=== PATIENT | female | born 1985 ===

== ENCOUNTER 2024-06-29 10:54 | Outpatient (AMB) | payer OTHER, SELFPAY ==
[2024-06-29 11:31] VITALS: BP 143/101; PULSE 88; O2SAT 99
--- NOTE | 2024-06-29 11:31 | MHC.OFFVIS ---
Vital Signs 06/29/24 11:31 Weight 163 lb BP 143/101 H Blood Pressure Location Rt brachial Position Sitting Pulse 88 Pulse Source Pulse Oximeter Pulse Oximetry (%) 99 Oxygen Delivery Method Room Air Intake Visit Reasons: Chronic Pain Allergies bee venom protein (honey bee) Allergy (Severe, Verified 06/29/24 11:37) Anaphylaxis ketorolac [From Toradol] Allergy (Severe, Verified 06/29/24 11:37) Anaphylaxis morphine Allergy (Severe, Verified 06/29/24 11:37) Anaphylaxis naproxen Allergy (Severe, Verified 06/29/24 11:37) Anaphylaxis NSAIDS (Non-Steroidal Anti-Inflamma Allergy (Severe, Verified 06/29/24 11:37) Anaphylaxis pregabalin Allergy (Severe, Verified 06/29/24 11:37) Anaphylaxis cefadroxil Allergy (Intermediate, Verified 06/29/24 11:37) Hives hydromorphone [From Dilaudid] Allergy (Intermediate, Verified 06/29/24 11:37) Hives Medication List - Last Reconciled 06/29/24 by Makenzie Bustos albuterol sulfate 2.5 mg inhalation Q6H albuterol sulfate 90 mcg/actuation 2 inhalations inhalation Q6H PRN alprazolam (Xanax) 0.5 mg PO BID capecitabine 1,000 mg PO BID fluticasone propion-salmeterol 100-50 mcg/dose (Advair Diskus) 1 inh inhalation BID lisinopril 5 mg PO DAILY multivitamin 1 tab PO DAILY naratriptan 2.5 mg PO ONCE PRN oxycodone-acetaminophen 5-325 mg 1 tab PO Q6H PRN HPI Comments Details: Ginger is a very pleasant 38-year-old female who presents to the office today for evaluation management of her chronic left breast pain Patient has been suffering with this pain for approximately 4 years. Diagnosed with breast cancer at the age of 33. Underwent mastectomy followed by reconstruction with implant and subsequent removal of the implant. Reports total of 10 surgeries to that area. Pain has persisted. She is unable to take nonsteroidal anti-inflammatory medications due to anaphylaxis. Has tried topical patches, gabapentin, Lyrica physical therapy all without improvement. Currently enrolled in chronic opioid program but after years of being on the medication is no longer controlling her pain Pain starts just under the axilla along the ribcage across to the sternum and from just under the clavicle to below the left breast. Areas significantly tender to even light touch sensation. Reports pain today is 8/10, constant. Does endorse temperature changes of the area, sometimes will feel hot sometimes it will feel cold. Also states some skin discoloration. Has followed up with the breast surgeon but was told there was nothing they can do for her Has recently been evaluated in the emergency room several times but they also were not able to provide her any assistance She was then referred to pain management by her PCP In terms of muscle damage condition is described as sharp, shooting, stabbing, throbbing, tingling, pins and needles Pain is negatively impacting patient's enjoyment of life, general activity, mood, normal work, recreational activities, relationships with people, sleep and walking. Patient reports the pain effects every part of my life? She lost her job because of the pain. Denies current use of anticoagulants Denies current use of nicotine, tobacco or illicit substances. Endorses social ETOH use [facility] Surgical History (Updated 06/29/24 @ 11:45 by Makenzie Bustos) History of partial hysterectomy Previous section History of tonsillectomy and adenoidectomy Hx of bilateral mastectomy Review of Systems Const All systems reviewed & are unremarkable except as noted in HPI and below Physical Exam Vital Signs: Last Vital Signs Pulse 88 06/29/24 11:31 BP 143/101 H 06/29/24 11:31 Pulse Ox 99 06/29/24 11:31 Oxygen Delivery Method Room Air 06/29/24 11:31 General: awake, alert, oriented. Answers questions appropriately. Fully engaged in examination. Skin: warm, dry, intact HEENT: Normocephalic. Hearing intact. Cardiac: External chest normal in appearance. Respiratory: No cough, audible wheezing or stridor. Abdomen: without gross distension. MS: No obvious swelling or deformities. Neurological: Oriented to person, place, time and situation. Thought process intact. No gait abnormalities appreciated. Psychiatric: Appropriate mood and affect. Good judgment and insight. Left breast from axilla to sternum, clavicle to just under left breast significantly sensitive to light touch sensation. Notable for allodynia, temperature changes, skin color changes. No signs of local or systemic infection. Assessment & Plan Assessment & Plan (1) Post-mastectomy pain syndrome: Code(s): G89.28 - Other chronic postprocedural pain Category: Medical (2) Chronic pain syndrome: Code(s): G89.4 - Chronic pain syndrome Plan Ginger is a very pleasant 38-year-old female who presented to the office today for evaluation and management of her chronic left breast pain History, physical exam and provocative testing consistent with postmastectomy pain syndrome/CRPS She has exhausted conservative therapy including PT, home exercise program, prescription medications, [id number] medications, topical medications all without improvement of her symptoms. Discussed options for treatment including diagnostic interventional testing, epidural steroid injections, peripheral nerve stimulation with Sprint, RFA and more permanent neuromodulation. Informational pamphlet for [employer] spinal cord stimulation provided. Will schedule for ultrasound-guided left intercostal nerve blocks with local anesthetic. All questions and concerns have been answered and patient agrees with the plan. Follow up after injections and sooner if needed. Coding Level of Care Code New Pt Level 4 (28780) Complex EM visit Add On G2211 Diagnoses Post-mastectomy pain syndrome G89.28 Chronic pain syndrome G89.4
== END 2024-06-29 12:07 | disposition home or self-care (01) ==
PROVIDERS: PCP Student in an Organized Health Care Education/Training Program; Visit Provider Registered Nurse Emergency
DX: G89.28 Other chronic postprocedural pain (principal)
CPT/HCPCS: 99204; G2211

== ENCOUNTER → 2024-06-29 10:54 | Outpatient (BNVA) | payer OTHER, SELFPAY | PROVIDERS: PCP Student in an Organized Health Care Education/Training Program; Visit Provider Registered Nurse Emergency | DX: G89.4 Chronic pain syndrome (principal) | CPT/HCPCS: 99202 ==

== ENCOUNTER 2024-07-21 08:46 | Outpatient (AMB) | payer OTHER, SELFPAY ==
--- NOTE | 2024-07-21 08:47 | A.OFFVIS_ITS ---
Vital Signs 07/21/24 08:49 Height 5 ft 4 in Weight 163 lb BMI 28.0 BP 138/89 Blood Pressure Location Rt brachial Position Sitting Respiration 16 Pulse 107 H Pulse Source Pulse Oximeter Pulse Oximetry (%) 99 Oxygen Delivery Method Room Air Intake Visit Reasons: Left intercostal NB Allergies bee venom protein (honey bee) Allergy (Severe, Verified 07/21/24 08:52) Anaphylaxis ketorolac [From Toradol] Allergy (Severe, Verified 07/21/24 08:52) Anaphylaxis morphine Allergy (Severe, Verified 07/21/24 08:52) Anaphylaxis naproxen Allergy (Severe, Verified 07/21/24 08:52) Anaphylaxis NSAIDS (Non-Steroidal Anti-Inflamma Allergy (Severe, Verified 07/21/24 08:52) Anaphylaxis pregabalin Allergy (Severe, Verified 07/21/24 08:52) Anaphylaxis cefadroxil Allergy (Intermediate, Verified 07/21/24 08:52) Hives hydromorphone [From Dilaudid] Allergy (Intermediate, Verified 07/21/24 08:52) Hives Medication List - Last Reconciled 07/21/24 by Yuly Bower LPN albuterol sulfate 2.5 mg inhalation Q6H albuterol sulfate 90 mcg/actuation 2 inhalations inhalation Q6H PRN alprazolam (Xanax) 0.5 mg PO BID amlodipine 5 mg PO DAILY fluticasone propion-salmeterol 100-50 mcg/dose (Advair Diskus) 1 inh inhalation BID multivitamin 1 tab PO DAILY naratriptan 2.5 mg PO ONCE PRN oxycodone-acetaminophen 5-325 mg 1 tab PO Q6H PRN HPI HPI Left intercostal NB: Details: 38-year-old female who presents today to the office for a left intercostal nerve block. Denies any recent cough, cold, infection, fever or other significant changes in medical history since last office visit.? [facility] Surgical History (Updated 06/29/24 @ 11:45 by Makenzie Bustos) History of partial hysterectomy Previous section History of tonsillectomy and adenoidectomy Hx of bilateral mastectomy Review of Systems Const All systems reviewed & are unremarkable except as noted in HPI and below Physical Exam Vital Signs: Last Vital Signs Pulse 107 H 07/21/24 08:49 Resp 16 07/21/24 08:49 BP 138/89 07/21/24 08:49 Pulse Ox 99 07/21/24 08:49 Oxygen Delivery Method Room Air 07/21/24 08:49 BMI result Body Mass Index 28.0 General: Appears afebrile. Alert and oriented. Mood and affect appropriate. Follows and participates in conversation appropriately. Respiratory effort is unlabored. Able to transition from sit to stand unassisted. Ambulates with bilaterally normal heel strike and toe off. Office Procedures Nerve Block Details: Left T7-8-9 intercostal nerve block, US guided After obtaining written consent, pre-procedure time-out was completed. The patie nt was placed in a left lateral position. The relevant levels of the intercostal nerves were physically palpated corresponding to the patient's pain and marked. Using ultrasound, the appropriate landmarks including the rib, intercostal muscles and pleura were identified. The skin was anesthetized with 1% lidocaine. A 21-gauge 80 mm echostim needle was advanced under sonographic guidance in proximity to each of the intercostal nerves. Aspiration was negative for heme and air. 2 cc of ropivacaine 0.5% mixed with 10 mg Kenalog was injected around each of the targeted nerves. The needle was removed, skin cleansed and a sterile bandage was applied. The patient tolerated the procedure well and no complications were encountered. Following the procedure, the patient's vital signs and respiration were stable. The patient was discharged home in good condition with post-procedural instructions. Time Out: Immediately prior to the procedure, the following was verbally confirmed that there is a signed consent form and that the correct patient, planned procedure, site and side are consistent with documentation and that necessary equipment and/or blood products are available prior to the start of the case. Complications: none EBL: <1 cc An ultrasound image of the injection was taken and stored in the permanent record. Procedure code (CPT) selection complete Results Reviewed Results Reviewed: No imaging is available for review. Assessment & Plan Assessment & Plan (1) Post-mastectomy pain syndrome: Code(s): G89.28 - Other chronic postprocedural pain Category: Medical Plan Patient is status post left T7-8-9 intercostal nerve block, US guided. Patient tolerated procedure well and was discharged home in stable condition with discharge instructions.? All questions were answered. I also discussed spinal cord stimulator as a possible treatment option. We will follow-up in one month in clinic to assess response to therapy. A follow-up appointment was made during today's visit. Scribed for Dr. Vance by Raymundo Vance, electromedical service engineer, on 07/21/2024. I, Dr. Vance, have personally reviewed and agree with the information entered by the scribe. Coding Level of Care Code Procedure Only Diagnoses Post-mastectomy pain syndrome G89.28
[2024-07-21 08:49] VITALS: BP 138/89; PULSE 107; RESP 16; O2SAT 99; BMI 28.0
== END 2024-07-21 09:18 | disposition home or self-care (01) ==
PROVIDERS: PCP Student in an Organized Health Care Education/Training Program; Visit Provider Internal Medicine
DX: G89.28 Other chronic postprocedural pain (principal)
CPT/HCPCS: 64420; 76942

== ENCOUNTER → 2024-07-21 08:46 | Outpatient (BNVA) | payer OTHER, SELFPAY | PROVIDERS: PCP Student in an Organized Health Care Education/Training Program; Visit Provider Internal Medicine | DX: G89.28 Other chronic postprocedural pain (principal) | CPT/HCPCS: 64420; J2003; J2795; J3301 ==

== ENCOUNTER 2024-08-18 09:48 | Outpatient (AMB) | payer OTHER, SELFPAY ==
--- NOTE | 2024-08-18 09:50 | MHC.OFFVIS ---
Vital Signs 08/18/24 09:52 Height 5 ft 4 in Weight 164 lb BMI 28.1 BP 136/94 H Blood Pressure Location Rt brachial Position Sitting Respiration 15 Pulse 96 Pulse Source Pulse Oximeter Pulse Oximetry (%) 99 Oxygen Delivery Method Room Air Intake Visit Reasons: 1 MONTH FOLLOW UP Allergies bee venom protein (honey bee) Allergy (Severe, Verified 08/18/24 09:53) Anaphylaxis ketorolac [From Toradol] Allergy (Severe, Verified 08/18/24 09:53) Anaphylaxis morphine Allergy (Severe, Verified 08/18/24 09:53) Anaphylaxis naproxen Allergy (Severe, Verified 08/18/24 09:53) Anaphylaxis NSAIDS (Non-Steroidal Anti-Inflamma Allergy (Severe, Verified 08/18/24 09:53) Anaphylaxis pregabalin Allergy (Severe, Verified 08/18/24 09:53) Anaphylaxis cefadroxil Allergy (Intermediate, Verified 08/18/24 09:53) Hives hydromorphone [From Dilaudid] Allergy (Intermediate, Verified 08/18/24 09:53) Hives Medication List - Last Reconciled 08/18/24 by Yuly Bower LPN albuterol sulfate 2.5 mg inhalation Q6H albuterol sulfate 90 mcg/actuation 2 inhalations inhalation Q6H PRN alprazolam (Xanax) 0.5 mg PO BID amlodipine 5 mg PO DAILY fluticasone propion-salmeterol 100-50 mcg/dose (Advair Diskus) 1 inh inhalation BID multivitamin 1 tab PO DAILY naratriptan 2.5 mg PO ONCE PRN oxycodone-acetaminophen 5-325 mg 1 tab PO Q6H PRN HPI HPI 1 MONTH FOLLOW UP: Details: 38-year-old female who presents today to the office for a follow up. Her pain was significantly improved after the last injection. She states that she was able to raise her arm over her head post injections. Her pain started returning after three weeks. She states that her pain is worse compared to her baseline prior to the injection. She discussed with her family about proceeding with an implantable device for longer pain relief. She is amenable to receive a nerve block today. Denies any recent cough, cold, infection, fever or other significant changes in medical history since last office visit.? Past procedures 07/21/24: Left T7-8-9 intercostal nerve block, US guided: 50-60% relief for about three weeks. [facility] Surgical History (Updated 06/29/24 @ 11:45 by Makenzie Bustos) History of partial hysterectomy Previous section History of tonsillectomy and adenoidectomy Hx of bilateral mastectomy Review of Systems Const All systems reviewed & are unremarkable except as noted in HPI and below Physical Exam Vital Signs: Last Vital Signs Pulse 96 08/18/24 09:52 Resp 15 08/18/24 09:52 BP 136/94 H 08/18/24 09:52 Pulse Ox 99 08/18/24 09:52 Oxygen Delivery Method Room Air 08/18/24 09:52 BMI result Body Mass Index 28.1 General: Appears afebrile. Alert and oriented. Mood and affect appropriate. Follows and participates in conversation appropriately. Respiratory effort is unlabored. Able to transition from sit to stand unassisted. Ambulates with bilaterally normal heel strike and toe off. Office Procedures Nerve Block Details: Left T7-8-9 intercostal nerve block, US guided After obtaining written consent, pre-procedure time-out was completed. The patient was placed in a left lateral position. The relevant levels of the intercostal nerves were physically palpated corresponding to the patient's pain and marked. Using ultrasound, the appropriate landmarks including the rib, intercostal muscles and pleura were identified. The skin was anesthetized with 1% lidocaine. A 21-gauge 80 mm echostim needle was advanced under sonographic guidance in proximity to each of the intercostal nerves. Aspiration was negative for heme and air. 2 cc of ropivacaine 0.5% mixed with 10 mg Kenalog was injected around each of the targeted nerves. The needle was removed, skin cleansed and a sterile bandage was applied. The patient tolerated the procedure well and no complications were encountered. Following the procedure, the patient's vital signs and respiration were stable. The patient was discharged home in good condition with post-procedural instructions. Time Out: Immediately prior to the procedure, the following was verbally confirmed that there is a signed consent form and that the correct patient, planned procedure, site and side are consistent with documentation and that necessary equipment and/or blood products are available prior to the start of the case. Complications: none Procedure code (CPT) selection complete Results Reviewed Results Reviewed: No imaging is available for review. Assessment & Plan Assessment & Plan (1) Post-mastectomy pain syndrome: Code(s): G89.28 - Other chronic postprocedural pain Category: Medical (2) CRPS (complex regional pain syndrome) type I: Code(s): G90.50 - Complex regional pain syndrome I, unspecified Category: Medical Plan Patient is status post repeat left T7-8-9 intercostal nerve block, US guided. Patient tolerated procedure well and was discharged home in stable condition with discharge instructions.?All questions were answered. Will place a referral for psychology clearance. Once we have received psychology clearance, we will plan for trial of spinal cord stimulator. The patient will receive a call from [facility] for the psychology assessment. Once we get the psychology clearance, we will file for insurance approval and keep her updated. Scribed for Dr. Vance by Raymundo Vance, medical records secretary, on 08/18/2024. I, Dr. Vance, have personally reviewed and agree with the information entered by the scribe. Coding Level of Care Code Est Pt Level 4 (13081) Diagnoses Post-mastectomy pain syndrome G89.28 CRPS (complex regional pain syndrome) type I G90.50
[2024-08-18 09:52] VITALS: BP 136/94; PULSE 96; RESP 15; O2SAT 99; BMI 28.1
== END 2024-08-18 10:39 | disposition home or self-care (01) ==
PROVIDERS: PCP Student in an Organized Health Care Education/Training Program; Visit Provider Internal Medicine
DX: G90.50 Complex regional pain syndrome I, unspecified (principal)
CPT/HCPCS: 99214

== ENCOUNTER → 2024-08-18 09:48 | Outpatient (BNVA) | payer OTHER, SELFPAY | PROVIDERS: PCP Student in an Organized Health Care Education/Training Program; Visit Provider Internal Medicine | DX: G90.50 Complex regional pain syndrome I, unspecified (principal); G89.28 Other chronic postprocedural pain | CPT/HCPCS: 99212; J2795; J3301 ==

== ENCOUNTER 2024-09-29 09:11 | Outpatient (AMB) | payer OTHER, SELFPAY ==
--- NOTE | 2024-09-29 09:14 | A.OFFVIS_ITS ---
Vital Signs 09/29/24 09:15 Height 5 ft 4 in Weight 167 lb BMI 28.7 BP 132/85 Blood Pressure Location Lt brachial Position Sitting Respiration 15 Pulse 102 H Pulse Source Pulse Oximeter Pulse Oximetry (%) 99 Oxygen Delivery Method Room Air Intake Visit Reasons: intercostal NB/veronica from 09/15 Allergies bee venom protein (honey bee) Allergy (Severe, Verified 09/29/24 09:17) Anaphylaxis ketorolac [From Toradol] Allergy (Severe, Verified 09/29/24 09:17) Anaphylaxis morphine Allergy (Severe, Verified 09/29/24 09:17) Anaphylaxis naproxen Allergy (Severe, Verified 09/29/24 09:17) Anaphylaxis NSAIDS (Non-Steroidal Anti-Inflamma Allergy (Severe, Verified 09/29/24 09:17) Anaphylaxis pregabalin Allergy (Severe, Verified 09/29/24 09:17) Anaphylaxis cefadroxil Allergy (Intermediate, Verified 09/29/24 09:17) Hives hydromorphone [From Dilaudid] Allergy (Intermediate, Verified 09/29/24 09:17) Hives Medication List - Last Reconciled 09/29/24 by Yuly Bower LPN albuterol sulfate 2.5 mg inhalation Q6H albuterol sulfate 90 mcg/actuation 2 inhalations inhalation Q6H PRN alprazolam (Xanax) 0.5 mg PO BID amlodipine 5 mg PO DAILY fluticasone propion-salmeterol 100-50 mcg/dose (Advair Diskus) 1 inh inhalation BID multivitamin 1 tab PO DAILY naratriptan 2.5 mg PO ONCE PRN oxycodone-acetaminophen 5-325 mg 1 tab PO Q6H PRN HPI HPI intercostal NB/veronica from 09/15: Details: 38-year-old female who presents today to the office for an intercostal nerve block. Denies any recent cough, cold, infection, fever or other significant changes in medical history since last office visit.? Past procedures 08/18/24: Left T7-8-9 intercostal nerve block, US guided: % relief. 07/21/24: Left T7-8-9 intercostal nerve block, US guided: 50-60% relief for about three weeks. [facility] Surgical History (Updated 06/29/24 @ 11:45 by Makenzie Bustos) History of partial hysterectomy Previous section History of tonsillectomy and adenoidectomy Hx of bilateral mastectomy Review of Systems Const All systems reviewed & are unremarkable except as noted in HPI and below Physical Exam Vital Signs: Last Vital Signs Pulse 102 H 09/29/24 09:15 Resp 15 09/29/24 09:15 BP 132/85 09/29/24 09:15 Pulse Ox 99 09/29/24 09:15 Oxygen Delivery Method Room Air 09/29/24 09:15 BMI result Body Mass Index 28.7 General: Appears afebrile. Alert and oriented. Mood and affect appropriate. Follows and participates in conversation appropriately. Respiratory effort is unlabored. Able to transition from sit to stand unassisted. Ambulates with bilaterally normal heel strike and toe off. Office Procedures Nerve Block Details: Left T7-8-9 intercostal nerve block, US guided After obtaining written consent, pre-procedure time-out was completed. The patient was placed in a left lateral position. The relevant levels of the intercostal nerves were physically palpated corresponding to the patient's pain and marked. Using ultrasound, the appropriate landmarks including the rib, intercostal muscles and pleura were identified. The skin was anesthetized with 1% lidocaine. A 21-gauge 80 mm echostim needle was advanced under sonographic guidance in proximity to each of the intercostal nerves. Aspiration was negative for heme and air. 2 cc of ropivacaine 0.5% mixed with 10 mg Kenalog was injected around each of the targeted nerves. The needle was removed, skin cleansed and a sterile bandage was applied. The patient tolerated the procedure well and no complications were encountered. Following the procedure, the patient's vital signs and respiration were stable. The patient was discharged home in good condition with post-procedural instructions. Time Out: Immediately prior to the procedure, the following was verbally c onfirmed that there is a signed consent form and that the correct patient, planned procedure, site and side are consistent with documentation and that necessary equipment and/or blood products are available prior to the start of the case. Complications: none Procedure code (CPT) selection complete Results Reviewed Results Reviewed: No imaging is available for review. Assessment & Plan Assessment & Plan (1) CRPS (complex regional pain syndrome) type I: Code(s): G90.50 - Complex regional pain syndrome I, unspecified Category: Medical (2) Post-mastectomy pain syndrome: Code(s): G89.28 - Other chronic postprocedural pain Category: Medical Plan Patient is status post repeat left T7-8-9 intercostal nerve block; US guided. Patient tolerated procedure well and was discharged home in stable condition with discharge instructions.?All questions were answered. Follow-up as needed. Scribed for Dr. Vance by Raymundo Vance, emergency medical technician/driver, on 09/29/2024. I, Dr. Vance, have personally reviewed and agree with the information entered by the scribe. Coding Level of Care Code Procedure Only Diagnoses CRPS (complex regional pain syndrome) type I G90.50 Post-mastectomy pain syndrome G89.28
[2024-09-29 09:15] VITALS: BP 132/85; PULSE 102; RESP 15; O2SAT 99; BMI 28.7
== END 2024-09-29 10:25 | disposition home or self-care (01) ==
PROVIDERS: PCP Student in an Organized Health Care Education/Training Program; Visit Provider Internal Medicine
DX: G90.50 Complex regional pain syndrome I, unspecified (principal)
CPT/HCPCS: 64420; 64421; 76942

== ENCOUNTER → 2024-09-29 09:11 | Outpatient (BNVA) | payer OTHER, SELFPAY | PROVIDERS: PCP Student in an Organized Health Care Education/Training Program; Visit Provider Internal Medicine | DX: G90.50 Complex regional pain syndrome I, unspecified (principal); G89.29 Other chronic pain | CPT/HCPCS: 64420; 64421; J2795; J3301 ==

== ENCOUNTER 2025-06-22 10:25 | Outpatient (AMB) | payer OTHER, SELFPAY ==
--- NOTE | 2025-06-22 10:30 | A.OFFVIS_ITS ---
Vital Signs 06/22/25 10:31 Height 5 ft 4 in Weight 167 lb BMI 28.7 BP 110/78 Blood Pressure Location Lt brachial Position Sitting Respiration 16 Pulse 80 Pulse Source Pulse Oximeter Pulse Oximetry (%) 96 Oxygen Delivery Method Room Air Intake Visit Reasons: intercostal NB System Developer Associate Manager Required: No Bank Guard: Bank Guard Present Accompanied by: nAgel Curiel Allergies bee venom protein (honey bee) Allergy (Severe, Verified 06/22/25 10:33) Anaphylaxis ketorolac (From Toradol) Allergy (Severe, Verified 06/22/25 10:33) Anaphylaxis morphine Allergy (Severe, Verified 06/22/25 10:33) Anaphylaxis naproxen Allergy (Severe, Verified 06/22/25 10:33) Anaphylaxis NSAIDS (Non-Steroidal Anti-Inflamma Allergy (Severe, Verified 06/22/25 10:33) Anaphylaxis pregabalin Allergy (Severe, Verified 06/22/25 10:33) Anaphylaxis cefadroxil Allergy (Intermediate, Verified 06/22/25 10:33) Hives hydromorphone (From Dilaudid) Allergy (Intermediate, Verified 06/22/25 10:33) Hives Medication List - Last Reconciled 06/22/25 by Yuly Bower, VITA albuterol sulfate 2.5 mg inhalation Q6H albuterol sulfate 90 mcg/actuation 2 inhalations inhalation Q6H PRN amlodipine 5 mg PO DAILY fluticasone propion-salmeterol 100-50 mcg/dose (Advair Diskus) 1 inh inhalation BID multivitamin 1 tab PO DAILY naratriptan 2.5 mg PO ONCE PRN oxycodone-acetaminophen 5-325 mg 1 tab PO Q6H PRN HPI HPI intercostal NB: Details: The patient is a 39-year-old female presenting with pain management concerns. She reports experiencing significant pain, which has been persistent and affects her ability to lay down comfortably. The pain has been severe enough to impact her daily activities, and she has difficulty with certain positions due to discomfort. The patient also mentions a history of anxiety, for which she previously took medication but is no longer on any anxiety medications. She currently experiences anxiety but does not have a psychologist or therapist for ongoing management. - Onset: Persistent pain - Quality: Significant pain affecting daily activities - Location: Generalized discomfort, exacerbated by certain positions - Exacerbating factors: Laying down [facility] Surgical History (Updated 06/29/24 @ 11:45 by Makenzie Bustos) History of partial hysterectomy Previous section History of tonsillectomy and adenoidectomy Hx of bilateral mastectomy Physical Exam Vital Signs: Last Vital Signs Pulse 80 06/22/25 10:31 Resp 16 06/22/25 10:31 BP 110/78 06/22/25 10:31 Pulse Ox 96 06/22/25 10:31 Oxygen Delivery Method Room Air 06/22/25 10:31 BMI result Body Mass Index 28.7 Office Procedures Nerve Block Details: Left T7-8-9 intercostal nerve block, US guided After obtaining written consent, pre-procedure time-out was completed. The patient was placed in a left lateral position. The relevant levels of the intercostal nerves were physically palpated corresponding to the patient's pain and marked. Using ultrasound, the appropriate landmarks including the rib, intercostal muscles and pleura were identified. The skin was anesthetized with 1% lidocaine. A 21-gauge 80 mm echostim needle was advanced under sonographic guidance in proximity to each of the intercostal nerves. Aspiration was negative for heme and air. 2 cc of ropivacaine 0.5% mixed with 10 mg Kenalog was injected around each of the targeted nerves. The needle was removed, skin cleansed and a sterile bandage was applied. The patient tolerated the procedure well and no complications were encountered. Following the procedure, the patient's vital signs and respiration were stable. The patient was discharged home in good condition with post-procedural instructions. Time Out: Immediately prior to the procedure, the following was verbally confirmed that there is a signed consent form and that the correct patient, planned procedure, site and side are consistent with documentation and that necessary equipment and/or blood products are available prior to the start of the case. 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 Patient tolerated procedure well and was discharged home in stable condition with discharge instructions. All questions were answered. We will follow-up via telephone or in clinic to assess response to therapy. A follow-up appointment was made during today's visit. Coding Level of Care Code Procedure Only Diagnoses Post-mastectomy pain syndrome G89.28 CRPS (complex regional pain syndrome) type I G90.50
[2025-06-22 10:31] VITALS: BP 110/78; PULSE 80; RESP 16; O2SAT 96; BMI 28.7
--- OUTSIDE RECORDS SUMMARY | 2025-06-22 11:57 | XMS_ITS | Encounter Summary ---
Author Organization [facility] Address [address] [facility] [address] [place] [address] Phone Care Team Providers Care M1A1 Tank Crewman Name Role Phone Zoë Herrera MD Primary Care Provider Encounter Details Date Type Department Care Team (Late st Contact Info) Description 03/20/2022 Procedure Pass [facility], Ct Scan - [address] [address] Social History Tobacco Use Types Packs/Day Years Used Date Smoking Tobacco: Never Assessed Comments Unknown Sex and Gender Information Value Date Recorded Sex Assigned at Not on file Legal Sex Female 9:52 AM EDT Gender Identity Not on file Sexual Orientation Not on file documented as of this encounter Functional Status * Calculated C-SSRS Risk Score (Lifetime/Recent) Answer Date of Assessment Author No Risk Indicated 03/20/2022 10:53 AM EDT Yohana Renteria, EL * [place] Suicide Severity Rating Scale (Screener/Recent Self-Report) Question Answer Date of Assessment Author 1. Wish to be (Past 1 Month) No 022 10:53 AM EDT Yohana Renteria, EL 2. Non-Specific Active Suici saumya Thoughts (Past 1 Month) No 03/20/2022 10:53 AM TATIANAT Oxana Renteria RN 6. Suicidal Behavior (Lifetime) No 10:53 AM TATIANAT Yohana Renteria, RN documented as of this encounter Plan of Treatment Not on file documented as of this encounter Visit Diagnoses Not on filedocumented in this encounter Care Teams M1A1 Tank Crewman Relationship Specialty Start Date End Date Zoë Herrera MD [address] [place] [id number] PCP - General Family Medicine 03/20/22 documented as of this encounter Additional Source Comments The information contained in this document represents components of the legal health record. It is not the complete legal health record.[facility]
--- OUTSIDE RECORDS SUMMARY | 2025-06-22 11:57 | XMS_ITS | Clinical Summary ---
Author Organization [facility] Address [address] [address] Phone Care Team Providers Care Rn Radiation Name Role Phone Zoë Herrera MD Primary Care Provider Allergies Active Allergy Reactions Criticality Noted Date Comments Hydromorphone 03/20/2022 Ibuprofen 03/20/2022 Morphine 03/20/2022 Ketorolac 03/20/2022 Medications No known medications Social History Tobacco Use Types Packs/Day Years Used Date Smoking Tobacco: Never Assessed Education Answer Date Recorded Are you interested in more education? Not on jackeline e 02/06/2023 Are you concerned about learning? Not on file 02/06/2023 No 02/06/2023 No 02/06/2023 Digital Access Answer Date Recorded No 03/09/2023 No 03/09/2023 Reliable internet access at home? Not on file 03/09/2023 Device with a working camera? Not on file Comments Unknown Sex and Gender Information Value Date Recorded Sex Assigned at Not on file Legal Sex Female 9:52 AM EDT Gender Identity Not on file Sexual Orientation Not on file Last Filed Vital Signs Vital Sign Reading Time Taken Comments Blood Pressure 128/78 03/20/2022 2:58 PM EDT Pulse 75 03/20/2022 2:58 PM EDT Temperature 36.8 C (98.2 F) 03/20/2022 2:58 PM EDT Respiratory Rate 16 03/20/2022 2:58 PM EDT Oxygen Saturation 100% 03/20/2022 2:58 PM EDT Inhaled Oxygen Concentration - - Weight 74.8 kg (165 lb) 03/20/2022 10:52 AM EDT Height 162.6 cm (5' 4 ) 03/20/2022 10:52 AM EDT Body Mass Index 28.32 03/20/2022 10:52 AM EDT Plan of Treatment Not on file Medical Devices Not on file Insurance [facility] [place] [facility] [place] [phone] [place] [address] [place] [address] [place] [address] [facility] [employer] [facility] Care Teams Rn Radiation Relationship Specialty Start Date End Date Zoë Herrera MD [address] [place] [address] PCP - General Family Medicine 03/20/22 Additional Source Comments The information contained in this document represents components of the legal health record. It is not the complete legal health record.[facility]
--- OUTSIDE RECORDS SUMMARY | 2025-06-22 11:57 | XMS_ITS | Encounter Summary ---
Author Organization [facility] Address [email or web address] [facility] [address] [place] [address] Phone Care Team Providers Care Citrus Fruit Colorer Name Role Phone Zoë Herrera MD Primary Care Provider Encounter Details Date Type Department Care Team (Late st Contact Info) Description 03/20/2022 Procedure Pass [facility], Ct Scan - [address] [address] Social History Tobacco Use Types Packs/Day Years [...] 10:53 AM EDT Yohana Renteria, EL * [place] Suicide Severity Rating Scale (Screener/Recent Self-Report) Question [...] on filedocumented in this encounter Care Teams Citrus Fruit Colorer Relationship Specialty Start Date End Date Zoë Herrera MD [address] [place] [id number] PCP - General Family Medicine 03/20/22 documented as of this encounter Additional Source Comments The information contained in this document represents components of the legal health record. It is not the complete legal health record.[facility]
== END 2025-06-22 11:04 | disposition home or self-care (01) ==
LOC: HO.PMC 10:26
PROVIDERS: PCP Student in an Organized Health Care Education/Training Program; Visit Provider Internal Medicine
DX: G90.50 Complex regional pain syndrome I, unspecified (principal)
CPT/HCPCS: 64420; 64421

== ENCOUNTER → 2025-06-22 10:25 | Outpatient (BNVA) | payer OTHER, SELFPAY | PROVIDERS: PCP Student in an Organized Health Care Education/Training Program; Visit Provider Internal Medicine | DX: R07.82 Intercostal pain (principal); G90.59 Complex regional pain syndrome I of other specified site | CPT/HCPCS: 64420; 64421; J2003; J2795; J3301 ==